=== PATIENT | female | born 1930 | race Caucasian/White ===

== ENCOUNTER 2016-10-17 21:05 | Inpatient (IN) | payer MEDICARE, BC ==
[~2016-10-17] VITALS: Ht 160 cm; Wt 91.6 kg
--- NOTE | ~2016-10-17 | OR ---
PATIENT'S NAME: Nicol MEZA [facility] AGE: 86 Y [address] ROOM: [address] [address] LOCATION: [facility] [place] ADMIT DATE: 10/17/2016 OR/Procedure Report DISCHARGE DATE: FAMILY PHYSICIAN: Homero Minor MD ATTENDING PHYSICIAN: JUDIT HAMILTON SURGEON: Jonathan Varela MD FITNESS SERVICES MANAGER: Tylor Serra PA-C DATE OF PROCEDURE: 10/21/2016 PREOPERATIVE DIAGNOSIS: Persistent partial small bowel obstruction. POSTOPERATIVE DIAGNOSES: 1. Persistent partial small bowel obstruction. 2. Meckel's diverticulum. PROCEDURES PERFORMED: 1. Exploratory laparoscopy with lysis of adhesions. 2. Meckel's diverticulectomy. ANESTHESIA: General endotracheal. ESTIMATED BLOOD LOSS: Minimal. REASON/INDICATION FOR PROCEDURE: The patient is an 86-year-old female, who was admitted several days ago with evidence of small bowel obstruction. Initially she seemed to improve and actually some of her CT contrast got into her right colon, but she never seemed to have completely recovered from this and we decided it was time to proceed with exploration. The risks and benefits were all discussed. FINDINGS: The patient had an adhesive band in the distal ilium that was definitely causing a high-grade partial obstruction. She had a Meckel's diverticulum directly adjacent to this. I am not sure if that had anything to do with the adhesive band, but it was adjacent to it. We did remove the Meckel's, but did not formally remove the rest of the small bowel. PROCEDURE IN DETAIL: The patient was taken to the operating suite and placed in the supine position. After general endotracheal anesthesia was obtained, the abdomen was prepped with ChloraPrep and sterilely draped. Marcaine was infiltrated into the incision sites. A 1 cm transverse incision was made in the upper midline. The fascia was elevated, and a Veress needle was used to obtain a pneumoperitoneum. A 5-mm trocar was then passed across the abdominal wall. Two further 5-mm trocars were placed under direct visualization. There were moderately dilated loops of small bowel noted, and down in the right lower quadrant, we found a loop of decompressed small bowel. We were able to PATIENT'S NAME: Nicol MEZA [facility] AGE: 86 Y [address] ROOM: [facility] [place], [place] [address] LOCATION: [facility] [place] ADMIT DATE: 10/17/2016 OR/Procedure Report DISCHARGE DATE: FAMILY PHYSICIAN: Homero Minor MD ATTENDING PHYSICIAN: JUDIT HAMILTON run this up to a transition zone. An adhesive band was causing the obstruction. This was somewhat difficult to see, but eventually we were able to maneuver the bowel away that I could slide the laparoscopic scissors in and cut this adhesive band. This definitely freed up the bowel and allowed passage of fluid through it. There were some more distal adhesions that did not seem to be causing any obstructive symptoms, but we did go ahead and freed the bowel up completely. As we were running the bowel, we noticed a small Meckel's diverticulum coming off the terminal ilium. There was no obvious inflammation. The Meckel's was right where the obstruction had occurred, though I am not convinced it had much to do with it. I did decide to go ahead and remove the Meckel's. An endoscopic MARIA ISABEL stapler was fired across the Meckel's diverticulum. Care was taken to not narrow the small bowel in this area. The Meckel's was then removed through the 12-mm trocar site. The staple line was intact. The trocars were all withdrawn. The pneumoperitoneum was evacuated. The fascia at the larger trocar site was closed with a Vicryl suture. The skin incisions were all closed with subcuticular Monocryl. Benzoin, Steri-Strips, and gauze dressings were applied. POSTPROCEDURE PLAN: The patient will be sent to recovery, and we will leave the NG tube in place. We will graduate return of bowel function. MD LYNN REEDER/india /[id number] d: 10/21/16 1903 t: 10/23/16 1542, OPERATIVE SUMMARY
--- NOTE | ~2016-10-17 | DS ---
PATIENT'S NAME: Nicol MEZA [facility] AGE: 86 Y [address] ROOM: [id number] [place], [place] [address] LOCATION: [facility] [place] ADMIT DATE: 10/17/2016 Discharge Summary DISCHARGE DATE: 10/24/2016 FAMILY PHYSICIAN: Homero Minor MD ATTENDING PHYSICIAN: Vin Alejandra PRIMARY/DISCHARGE DIAGNOSES: 1. Partial small bowel obstruction. 2. Acute kidney injury on chronic kidney disease. 3. Hypernatremia. 4. Essential hypertension. 5. Hypothyroidism. 6. Dyslipidemia. PROCEDURES PERFORMED: Principal procedures done for the patient includes: Laparoscopy enterolysis by Dr. Varela and also Coleman diverticulectomy by Dr. Varela. LABORATORY DATA: Laboratories on admission: WBC 8.0, was stable throughout the hospital stay. Prior to discharge was 6.4, H and H on admission were 13.2/40.6, prior to discharge, they were 10.3 with 32.7; and platelets 230,000, were stable throughout the hospital stay. On admission, creatinine was 2.6, prior to discharge was 1.3. Sodium on admission was 136, highest level obtained was 149, and prior to discharge was 145; bicarbonate was stable at 28 on admission, and prior to discharge was 25. Phosphorus on admission was 4.6, was stable throughout the hospital stay. Albumin was 2.5, was stable throughout the hospital stay at 2.2 upon discharge. Magnesium was 2.0 on admission, prior to discharge was 1.7. Radiology: KUB on admission reported as no free air identified on the supine study. Nasogastric tube in place with distal portion in the stomach, air containing mildly dilated small-bowel loops with colon decompression, appearance is consistent with clinically suspected small-bowel obstruction. The patient has serial KUBs done. Last KUB done which was done on hospital day 4, is reported as no free air identified in the abdomen, distended, air containing small bowel loops with increased extent of small bowel distention on this study when compared with prior imaging, and appearance is worrisome for small bowel obstruction. HOSPITAL COURSE: For history of present illness, please take a look at the H and P which was done by Dr. Alejandra. The patient was admitted to Med-Surgical unit, had a General Surgery consult, was managed for partial small bowel obstruction. For the first 4 days of the hospital stay, the patient was managed conservatively with an NG tube path for decompression. She was hydrated and pain was controlled with analgesics and had General Surgery PATIENT'S NAME: Nicol MEZA [facility] AGE: 86 Y [address] ROOM: [id number] [place], [place] [address] LOCATION: [facility] [place] ADMIT DATE: 10/17/2016 Discharge Summary DISCHARGE DATE: 10/24/2016 FAMILY PHYSICIAN: Homero Minor MD ATTENDING PHYSICIAN: Vin Alejandra following up closely with serial KUBs. For the first hospital stay, the patient clinically appeared to feel more comfortable, however, by the 4th day of the hospital stay, the repeat KUB showed worsening of the small bowel obstruction. So patient was subsequently taken into the OR by the General Surgery team for a laparoscopic enterolysis as well as during the procedure, a Meckel's diverticulectomy was also performed. The procedure was well tolerated by the patient. By the first day postoperatively, the patient felt extremely better, was started on a clear liquid diet, which she tolerated well. Started to ambulate on the floor in the hallway, and by the second day postoperatively, her diet was advanced to a soft mechanical diet which she tolerated very well. Pain had completely resolved following the procedure, and by the third day postoperatively, she was back to her baseline, ambulating in the hallway, and tolerating her regular diet well with no nausea or vomiting or abdominal pain. First day postoperatively, she did also develop hypernatremia which was corrected with D5 water, and by the day of discharge, her hypernatremia had resolved, and also her acute kidney injury with chronic kidney disease which she presented with had also resolved as well with hydration. On the day of discharge, she was in good spirit, vital signs were stable, and she was discharged to home. MEDICATIONS ON DISCHARGE: Includes: 1. Chlorthalidone 25 mg p.o. q. day. 2. Aspirin 81 mg p.o. q. day. 3. Synthroid 88 mcg p.o. q. day. 4. Timolol eye drops. 5. Xalatan eye drops. 6. Calcium (Os-Adniel) 1 tablet p.o. q. day. 7. Multivitamin 1 tablet p.o. q. day. 8. Fish oil 1 g p.o. q. day. 9. Pravachol 40 mg p.o. at bedtime. 10. Vitamin C 500 mg p.o. q. day. 11. Pepcid 20 mg q. day. MD DELLA YOUNG/india /[id number] d: 10/24/16 2330 t: 10/27/16 1352, DISCHARGE SUMMARY
--- NOTE | ~2016-10-17 | HP ---
PATIENT'S NAME: Nicol MEZA [facility] AGE: 86 Y [address] ROOM: [address] [address] LOCATION: G3 ADMIT DATE: 10/17/2016 History & Physical DISCHARGE DATE: FAMILY PHYSICIAN: PHYSICIAN, UNKNOWN ATTENDING PHYSICIAN: JUDIT HAMILTON DATE OF SERVICE: CHIEF COMPLAINT: Nausea and nonbloody vomiting associated with abdominal pain and bloating for the last five days. HISTORY OF PRESENT ILLNESS: This is an 86-year-old female with a prior surgical history of status post total abdominal hysterectomy and bilateral salpingo oophorectomy in the early and also status post appendectomy before 1999 and remote history of what the patient reported to be cystocele repair before 1999. This Friday around 2:30 p.m., she felt this vague abdominal pain and bloating in her right upper, right lower, and epigastric area associated with nausea and vomiting. That day, she vomited four times, nonbloody content. The symptoms persisted for the next three days and yesterday her symptoms still persisted and she felt even more bloated, not so much abdominal pain, more abdominal bloating and distention right now and the last time she vomited was yesterday morning and she still feels nauseous and last bowel movement was last Friday and it was loose, but nonbloody. The last time she ate a meal was yesterday morning. She has not passed any flatus for several days and last time she passed flatus, she could not even remember. Because of all these symptoms, the patient went to outside facility at [place]. Over there, KUB was performed and it showed abnormal bowel gas pattern which could reflect a small bowel obstruction and they recommend a CT for further evaluation. No free air. CT abdomen and pelvis without contrast was performed and that it showed small bowel obstruction pattern with level transition within the ilium in the right lower quadrant. Fluid adjacent to loops of small bowel. Noncontrast study limits the assessment for early ischemic changes. No late manifestations of bowel ischemia. Surgical evaluation is recommended. Because of these, the patient was sent over here for higher level of care. REVIEW OF SYSTEMS: As mentioned in the history of present illness. All other systems reviewed and negative except those mentioned in history of present illness. PAST MEDICAL HISTORY: 1. Hypertension. 2. Hypothyroidism. 3. Osteoarthritis. PATIENT'S NAME: Nicol MEZA [facility] AGE: 86 Y [address] ROOM: [address] [address] LOCATION: [facility] ADMIT DATE: 10/17/2016 History & Physical DISCHARGE DATE: FAMILY PHYSICIAN: PHYSICIAN, UNKNOWN ATTENDING PHYSICIAN: JUDIT HAMILTON 4. Hyperlipidemia. The patient denies any other past medical history. ALLERGIES: SULFA. THE PATIENT STATES THAT IT CAUSES HER TO HAVE ULCER AND BLISTER IN HER LIPS. SHE ALSO HAS ALLERGY TO TETANUS VACCINATION. HOME MEDICATIONS: Currently is being reconciled. SOCIAL HISTORY: The patient denies any alcohol or illegal drug or cigarette use in the past or in the present. FAMILY HISTORY: Father from brain aneurysm at advanced age. Mother from complication from stroke also at advanced age. PAST SURGICAL HISTORY: Status post total abdominal hysterectomy and bilateral salpingo-oophorectomy, status post cystocele prolapse repair, and status post appendectomy. PHYSICAL EXAMINATION: VITAL SIGNS: At the time of my dictation, temperature 98.3, heart rate 86, respirations 16, blood pressure 156/95, saturation 94% on room air. Pain 3/10 in the right lower quadrant. GENERAL APPEARANCE: Alert and oriented x3, in no acute distress. A very pleasant female. HEENT: Pupils are equally round and reactive to light. Extraocular muscles intact. Anicteric sclerae. Nasal turbinates are normal bilaterally. Moist oral mucosa. No oral thrush. NECK: No JVD. No cervical lymphadenopathy. RESPIRATORY: Clear. CARDIOVASCULAR: Regular rate and rhythm. Normal S1, S2. No murmur, no rubs, no gallops. ABDOMEN: Soft, distended, no abdominal rigidity, no rebound tenderness, mild tenderness to palpation more in the right lower quadrant about 4/10 intensity. Bowel sounds present, no palpable mass. EXTREMITIES: No edema in upper or lower extremity. SKIN: No ulcer, no rash, no cyanosis. MUSCULOSKELETAL: No joint pain. No muscle pain. Range of motion intact. NEUROLOGIC: Grossly nonfocal. LABORATORY DATA: Laboratory data from the outside facility today; white blood cells 7.6, [facility] 86 Y [address] ROOM: [address] [address] LOCATION: [facility] ADMIT DATE: 10/17/2016 History & Physical DISCHARGE DATE: FAMILY PHYSICIAN: PHYSICIAN, UNKNOWN ATTENDING PHYSICIAN: JUDIT HAMILTON hemoglobin 14.8, hematocrit 45, MCV 92, platelets 260. Urinalysis negative for UTI. Sodium 137, potassium 4.6, chloride 97, anion gap 21.3. Carbon dioxide 24, glucose 120, BUN 54, creatinine 1.9, GFR 25, calcium 9.7, total protein 7.4, globulin 3.4, albumin 4.0, AST 36, ALT 28, alkaline phosphatase 99, total bilirubin 0.8. IMAGING STUDIES: CT scan abdomen and pelvis without contrast and KUB were performed at outside facility. Refer to the history of present illness for details. ASSESSMENT AND PLAN: 1. Small bowel obstruction. N.p.o. NG tube insertion for intermittent suctioning. IV fluids for hydration. Pain control with IV morphine p.r.n. I will get a General Surgery consult in the morning. The patient has not passed flatus for several days and still feels nauseous and abdomen is distended and the last bowel movement was last Friday and I will have General Surgery see the patient in the morning for further recommendation. Pain with IV morphine p.r.n. She can have ice chips. PO Peridex 3 times a day. I will get a KUB in the morning. Check labs in the morning including a lactic acid. 2. Hypertension. Home medications are being reconciled. She is n.p.o. If necessary, I will give her IV hydralazine p.r.n. and IV labetalol p.r.n., and if necessary IV Lopressor, but IV Lopressor is better for heart rate control and not so much for the blood pressure control. 3. Hypothyroidism. I will check a TSH in the morning and titrate the dose of levothyroxine if necessary. I will give her IV levothyroxine by cutting down the home dose p.o. by half. 4. Regarding her acute kidney injury or chronic kidney disease, I am not sure what is her baseline creatinine. I will give her IV fluids for hydration and get the medical records and labs from her primary care physician's office tomorrow to compare her baseline. Check a renal panel again in the morning. 5. Regarding her hyperlipidemia. Hold the pravastatin. She is n.p.o. and will be having NG tube for now. 6. Deep venous thrombosis prophylaxis. The patient will be on compression devices for now. Pending General Surgery evaluation in the morning. Time spent in care on the day of admission 35 minutes including chart review, interviewing and examining the patient, addressing all the questions and concerns the patient had, and going over the plan of care with the patient and the patient's family members and the nurses. JUDIT HAMILTON MD PATIENT'S NAME: Nicol MEZA [facility] AGE: 86 Y [address] ROOM: [address] [address] LOCATION: [facility] ADMIT DATE: 10/17/2016 History & Physical DISCHARGE DATE: FAMILY PHYSICIAN: PHYSICIAN, UNKNOWN ATTENDING PHYSICIAN: JUDIT HAMILTON CC/india /[id number] D: [id number] T: [id number] HISTORY & PHYSICAL
--- NOTE | ~2016-10-17 | CON ---
PATIENT'S NAME: Nicol HARRIS [facility] AGE: 86 Y [address] ROOM: [address] [address] LOCATION: G3N ADMIT DATE: 10/17/2016 Consultation DISCHARGE DATE: FAMILY PHYSICIAN: Homero Minor MD ATTENDING PHYSICIAN: JUDIT HAMILTON DATE OF CONSULTATION: 10/18/2016 REFERRING PHYSICIAN: Fabienne Varela MD REASON FOR CONSULTATION: Small bowel obstruction. HISTORY OF PRESENT ILLNESS: Ms. Harris is an 86-year-old female, who transferred to [facility] yesterday from [place], [place] after a CT scan showed small bowel obstruction. The patient states that she was in her usual state of health up until October 13, when she had some diarrhea. She states that this will occasionally happen after certain foods that she eats and so she did not think too much of it. She states that she did not feel ill at that time. The following morning, she still felt fine, but that evening, she developed terrible pains in her stomach. On October 15, the patient had emesis. Later that day, she thought she was feeling better, but then on October 16, the patient continued with emesis along with pain in the lower abdomen. She states that she was very sick at that point in time and subsequently presented for evaluation yesterday afternoon in [place]. The patient denies having anything like this before. She has never been in the hospital with bowel obstruction. Last evening, an NG tube was placed to suction. She states that made a big difference in how she feels. She denies any pain today. She is not passing gas yet. She has not had a bowel movement since Friday when she was having the diarrhea. The patient's evaluation in [place] included an x-ray that showed some dilated small bowel loops measuring up to 4.2 cm in diameter. She also had air-fluid levels on the upright exam. This was followed up with a CT scan, which showed dilated small bowel loops measuring up to 3.6 cm in diameter. There were air- fluid levels present within the small bowel loops. Transition appeared to be in the right lower quadrant within the ileum. There was fluid surrounding dilated small bowel loops. IV contrast have not been given, so the study was limited. No twisting in the mesentery was seen. The patient did transfer and was admitted under the care of the hospitalist. An NG tube was placed to intermittent suction. Dr. Varela was consulted this morning for surgical evaluation. ALLERGIES: SULFA. PATIENT'S NAME: Nicol HARRIS [facility] AGE: 86 Y [address] ROOM: [place] [address] LOCATION: [facility] ADMIT DATE: 10/17/2016 Consultation DISCHARGE DATE: FAMILY PHYSICIAN: Homero Minor MD ATTENDING PHYSICIAN: JUDIT HAMILTON MEDICATIONS: Include, 1. Aspirin 81 mg p.o. b.i.d. 2. Os-Daniel 1 tablet p.o. daily. 3. Hygroton 25 mg p.o. daily. 4. Xalatan 1 drop ophthalmic daily. 5. Levothyroxine 88 mcg p.o. daily. 6. Cozaar 50 mg p.o. daily. 7. Multivitamin 1 tablet p.o. daily. 8. Fish oil 1000 mg p.o. daily. 9. Pravachol 40 mg p.o. at bedtime. 10. Timoptic 1 drop ophthalmic b.i.d. 11. Ascorbic acid 500 mg p.o. daily. 12. PreserVision 2 tablets p.o. b.i.d. ILLNESSES: Include glaucoma and macular degeneration. The patient states probably that she has not lost any vision up unto this point. She has hypertension, hypercholesterolemia, and hypothyroid. The patient denies any history of heart disease, DVT, any pulmonary problems, or cancer. OPERATIONS: Include, 1. Excision of her right fallopian tube with appendectomy due to infection in the period. 2. Vaginal hysterectomy. 3. Breast biopsy. 4. History of broken arm. 5. Colonoscopy, 4 years ago with a few polyps removed. SOCIAL HISTORY: The patient is . She lives in her own home in [place]. She lives alone. She is a nonsmoker and does not consume alcohol. FAMILY HISTORY: Father from a brain aneurysm. Mother had a stroke. She had 2 brothers and 1 sister, each of which also had strokes. REVIEW OF SYSTEMS: The patient states that up until this started on October 13, she had been getting along well. Her appetite had been good. She had not lost any weight. She denies any recent coughs or colds. She had the flu vaccine. She did not have influenza. No recent pneumonias. No shortness of breath. No chest pain. No history of any heart problems. Her bowels have been working PATIENT'S NAME: Nicol HARRIS [facility] AGE: 86 Y [address] ROOM: [place] [address] LOCATION: [facility] ADMIT DATE: 10/17/2016 Consultation DISCHARGE DATE: FAMILY PHYSICIAN: Homero Minor MD ATTENDING PHYSICIAN: JUDIT HAMILTON normally with no blood in her stool. No pain, frequency, or urgency of urination. PHYSICAL EXAMINATION: VITAL SIGNS: Temperature 97.9, blood pressure 137/58, pulse 70, respirations 13. GENERAL: An 86-year-old female, who is alert and oriented, pleasant and cooperative, in good spirits. She is a good historian. EYES, EARS, NOSE, AND THROAT: Grossly normal, although she does have an NG tube in place. LUNGS: Clear to auscultation anteriorly. No wheezes, rhonchi, or rales noted. HEART: Regular rate and rhythm. ABDOMEN: Has active bowel sounds. Abdomen is soft and nontender to palpation. She has a scar noted in the lower midline. EXTREMITIES: The patient appears to move extremities equally. LABORATORY WORK: White blood cell count 8.0, hemoglobin 13.2, hematocrit 40.6, platelets 230. Sodium 136, potassium 4.1, chloride 98, CO2 of 28, BUN 60, creatinine is up to 2.6 compared to 1.9 yesterday. Glucose 110, Protime 10.9, INR 1.0. Liver function tests were within normal limits. Magnesium was 2.0. Protime 10.9, INR 1.0. CT scan per HPI. ASSESSMENT: An 86-year-old female with, 1. Small bowel obstruction, most likely related to adhesions. 2. Renal insufficiency with creatinine of 1.9 up to 2.6 today. 3. Hypertension. 4. Hypercholesterolemia. 5. Glaucoma. 6. Macular degeneration. 7. Hypothyroid. PLAN: I discussed the findings on CT scan with the patient and her [id number], who is at bedside. I discussed conservative treatment with NG tube for decompression along with bowel rest. Alternatively, I discussed proceeding with an operation to release the bowel obstruction. Given the fact that the patient is feeling better today, I feel that it is reasonable to continue with NG decompression, and if she does not continue to improve or if she worsens over the next 24 to 48 hours, then we can reconsider doing a laparoscopy, possible laparotomy. The patient was in understanding and agreement with the conservative treatment at this time. I have discussed this patient with Dr. Varela. He has reviewed over some of her imaging studies. He will be PATIENT'S NAME: Nicol HARRIS [facility] AGE: 86 Y [address] ROOM: [place] [address] LOCATION: [facility] ADMIT DATE: 10/17/2016 Consultation DISCHARGE DATE: FAMILY PHYSICIAN: Homero Minor MD ATTENDING PHYSICIAN: JUDIT HAMILTON evaluating the patient momentarily and will be involved in the final assessment and plan. Again, Dr. Varela is available for supervision. SCOTT CERVANTES PA-C FOR FABIENNE VARELA MD KDK/modl /[id number] d: 10/18/16 1248 t: 10/28/16 1032, CONSULTATION REPORT
[2016-10-18] MEDS ORDERED: ASPIRIN LO-DOSE81 MG PO (00:09)
[2016-10-18] MEDS ORDERED: OSCAL500 MG PO (00:10)
[2016-10-18] MEDS ORDERED: XALATAN2.5 ML OPHTH (00:11)
[2016-10-18] MEDS ORDERED: HYGROTON25 MG PO (00:11)
[2016-10-18] MEDS ORDERED: THERAGRAN-M1 TAB PO (00:12)
[2016-10-18] MEDS ORDERED: LEVOTHROID (SY88 MCG PO (00:12)
[2016-10-18] MEDS ORDERED: COZAAR50 MG PO (00:12)
[2016-10-18] MEDS ORDERED: FISH OIL 1,001000 MG PO (00:13)
[2016-10-18] MEDS ORDERED: PRAVACHOL40 MG PO (00:13)
[2016-10-18] MEDS ORDERED: TIMOPTIC XE 0.5%5 ML OPHTH (00:14)
[2016-10-18] MEDS ORDERED: ASCORBIC ACID500 MG PO (00:14)
[2016-10-18] MEDS ORDERED: PRESERVISION A1 EAC1 PO (00:14)
--- NOTE | 2016-10-18 04:54 | NUR ---
PATIENT FROM [facility] BY PLATING ENGINEER AFTER 5 DAYS OF NAUSEA/VOMITING, POOR PO INTAKE AND ABDOMINAL PAIN AND ABDOMINAL CT SHOWED A SBO. DR HAMILTON WILL BE FOLLOWING PATIENT AND FAMILY IS IN ROOM.
--- NOTE | 2016-10-18 04:56 | NUR ---
SBO, NGT PLACED WITH IMMEDIATE 1500ML OF BROWNISH FECAL SMELLING FLUID, NGT TO LIS AND PATIENT REPORTED RELIEF OF ABDOMINAL PRESSURE. LFA PIV WAS STARTED AT [facility] AND IS NOW RUNNING D5 NS @50ML/HR. VS WNL, RA, UP WITH SBA/GAIT BELT. PATIENT IS NPO AND MAY HAVE ICE CHIPS PRN. NO N/V SINCE ADMITTED AND ZOFRAN WAS GIVEN LAST @2007 AT THE [facility] [facility] BEFORE TRANSPORT. FAMILY PRESENT IN ROOM OVERNIGHT FOR SUPPORT.
[2016-10-18 05:45] LABS: HEMATOCRIT 40.6 % (30.0-46.0); HEMOGLOBIN 13.2 g/dL (10.0-15.0); MCH 29.8 pg (27.0-34.0); MCHC 32.5 gm/dL (32.0-36.5); MCV 91.6 fl (83.0-98.0); RBC 4.43 M/uL (3.00-5.00); RDW-CV 12.3 % (11.9-14.6)
[2016-10-18 05:55] LABS: PROTIME 10.9 SECONDS (9.6-11.1)
[2016-10-18 06:12] LABS: ANION GAP 14.1 (10.0-19.0); CALCIUM 8.3 mg/dL (8.5-10.5); CREATININE 2.6 mg/dL (0.5-1.1); PHOSPHORUS 4.8 mg/dL (2.5-4.9); POTASSIUM 4.1 mMol/L (3.7-5.1); TOTAL BILIRUBIN 0.6 mg/dL (0.0-1.5); TOTAL PROTEIN 6.3 g/dL (6.0-8.4)
--- NOTE | 2016-10-18 06:43 | NUR ---
[id number] Supervised [facility] [employer].
--- NOTE | 2016-10-18 11:00 | NUR ---
SPOKE TO PATIENT REGARDING CM AND OUR ROLE. PATIENT LIVES IN OWN HOME ALONE. SHE DOES NOT ANTICIPATE ANY DISCHARGE NEEDS AT THIS TIME. CM WILL CONT TO FOLLOW NEEDED.
[2016-10-18 15:42] LABS: CALCIUM 7.9 mg/dL (8.5-10.5); CREATININE 2.3 mg/dL (0.5-1.1); PHOSPHORUS 4.5 mg/dL (2.5-4.9)
[2016-10-18 15:47] LABS: ANION GAP 14.9 (10.0-19.0); MAGNESIUM 1.9 mg/dL (1.3-2.6); POTASSIUM 3.9 mMol/L (3.7-5.1)
--- NOTE | 2016-10-18 16:14 | NUR ---
Significant Event: Pt is a/o. Has amb to BR, walked in driver x 2, sat in chair. Rates abd pain @ 2 . States she feels much better today. Has NG to LIS. Had 825 ml from NG this shift. Reports mild sore throat pain from NG tube. BS present. Follow up:
--- NOTE | 2016-10-19 04:06 | NUR ---
Patient alert and oriented x3, very pleasant and cooperative, NG tube in place had 550 out this shift changed the canister tolerating well, bowel sounds hypoactive in the lower quadrants, NPO taking ice chips, throat is slightly sore, tranfers one assit well with gaitbelt, has rested well tonight
[2016-10-19 06:01] LABS: BASOPHIL % 0.5 %; EOSINOPHIL # 0.2 K/uL (0.0-0.5); EOSINOPHIL % 2.4 %; HEMATOCRIT 37.6 % (30.0-46.0); HEMOGLOBIN 12.3 g/dL (10.0-15.0); IMMATURE GRANULOCYTE % 0.3 %; LYMPHOCYTE % 14.1 %; MCH 30.3 pg (27.0-34.0); MCHC 32.7 gm/dL (32.0-36.5); MCV 92.6 fl (83.0-98.0); MONOCYTE # 1.1 K/uL (0.0-1.0); MONOCYTE % 14.5 %; MPV 10.8 fl (9.4-12.4); NEUTROPHIL % 68.2 %; NRBC % 0 /100WBC (0-0.00); PLATELET COUNT 199 K/uL (150-450); RBC 4.06 M/uL (3.00-5.00); RDW-CV 12.4 % (11.9-14.6); WBC 7.4 K/uL (4.0-11.0)
[2016-10-19 06:15] LABS: ALBUMIN 2.5 gm/dL (3.5-5.0); ANION GAP 11.7 (10.0-19.0); CALCIUM 7.7 mg/dL (8.5-10.5); MAGNESIUM 1.9 mg/dL (1.3-2.6); PHOSPHORUS 3.6 mg/dL (2.5-4.9); POTASSIUM 3.7 mMol/L (3.7-5.1)
--- NOTE | 2016-10-19 13:44 | NUR ---
Significant Event:AOx3. NG tube intact on intermittent suction. 300ml output of greenish brown drainage. Ice chips at bedside. Hypoactive bowel sounds. GFR is 24. Fluids running at 80ml/hr NS. Up with SBA. Has walked halls today. Follow up:
--- NOTE | 2016-10-19 17:00 | NUR ---
Significant Event: Pt transfered from 3N at 1600. a/o x3. 1 assist. Has an NG to right nare, suction to low intermittent, small amt of brown drainage at this time. NPO with ice chips. Follow up:
--- NOTE | 2016-10-20 05:24 | NUR ---
ALERT AND ORIENTATED X4. AMBULATES WITH STAND BY ASSIST. IV WAS RESTARTED THIS SHIFT FLUIDS RUNNING. ICE CHIPS GIVEN NO REPORT OF NAUSEA OR VOMITING. NG TUBE TO R NARE ON LOW INTERMITTENT SUCTION WITH 350 ML OUT. STATED SHE FEELS LIKE SHE MAY HAVE A BM BUT NO RESULTS. HYPOACTIVE BOWELS SOUNDS. VS WNL. ON RA. RESTED WELL THIS SHIFT NO COMPLAINTS OF PAIN OR DISCOMFORT. COORPERATIVE WITH CARES
[2016-10-20 05:30] LABS: ALBUMIN 2.5 gm/dL (3.5-5.0); CALCIUM 7.9 mg/dL (8.5-10.5); CREATININE 1.4 mg/dL (0.5-1.1); PHOSPHORUS 2.6 mg/dL (2.5-4.9); POTASSIUM 3.4 mMol/L (3.7-5.1)
[2016-10-20 05:32] LABS: ANION GAP 12.4 (10.0-19.0)
--- NOTE | 2016-10-20 15:24 | NUR ---
Significant Event: Pt denies pain. Ambulated in driver x 4. Up in recliner most of shift. NG to right nare, was on LIS but was clamped per order at 1300, to check residuals q 6 hrs and restart suction if nauseated. Still has not passed flatus. Good bowel sounds. Bp elevated, started on IV hydralizine TID. O2 sat 87-90% on room air, encouraged IS and coughing, O2 ordered if less than 90%. Lung sounds diminished in lower bases. Follow up:
[2016-10-21 05:13] LABS: ANION GAP 12.3 (10.0-19.0); CALCIUM 8.2 mg/dL (8.5-10.5); CREATININE 1.2 mg/dL (0.5-1.1); POTASSIUM 3.3 mMol/L (3.7-5.1)
--- NOTE | 2016-10-21 17:58 | NUR ---
Significant event: Patient is alert and oriented x3. VSS on room air. IV to right hand. Had midline placed to left upper arm this afternoon. Went to surgery this morning and had a laparoscopic lysis of adhesions and removal of meckel's diverticulum. patient Returned to floor at 1315 and has had no complaints of pain. NG in place in right nare, is on low intermittent suction. Is NPO for now. 3 lap incisions to abdomen covered with gauze and tegaderm, no drainage noted. Cooperative with cares.
--- NOTE | 2016-10-22 04:48 | NUR ---
Significant Event: Patient alert and oriented X4. Up with one person assist and gait belt. Walked in room several times and in driver X1 out to nurses station. Tolerated well. Having some ice chips. NG to R) nare had 100ml out. Voiding well. IVF switched over to midline on L) arm. Good blood return. Denies any pain. Passing some gas. Received some IV K+ last night. Follow up: Monitor flatus
[2016-10-22 05:21] LABS: BASOPHIL % 0.1 %; EOSINOPHIL % 0.3 %; HEMATOCRIT 37.8 % (30.0-46.0); HEMOGLOBIN 11.9 g/dL (10.0-15.0); IMMATURE GRANULOCYTE % 0.3 %; LYMPHOCYTE % 13.1 %; MCHC 31.5 gm/dL (32.0-36.5); MCV 95.2 fl (83.0-98.0); MONOCYTE # 0.7 K/uL (0.0-1.0); MONOCYTE % 9.9 %; NEUTROPHIL # (ANC) 5.7 K/uL (1.8-7.8); NEUTROPHIL % 76.3 %; NRBC % 0 /100WBC (0-0.00); PLATELET COUNT 180 K/uL (150-450); RBC 3.97 M/uL (3.00-5.00); RDW-CV 12.6 % (11.9-14.6); WBC 7.5 K/uL (4.0-11.0)
[2016-10-22 05:34] LABS: CALCIUM 8.2 mg/dL (8.5-10.5); CREATININE 1.3 mg/dL (0.5-1.1)
[2016-10-22 05:37] LABS: ANION GAP 13.2 (10.0-19.0); POTASSIUM 4.2 mMol/L (3.7-5.1)
--- NOTE | 2016-10-22 12:16 | NUR ---
A-SCREENED D/T LOS S/P LAPAROSCOPIC LYSIS OF ADHESIONS AND REMOVAL OF MECKELS DIVERTICULUM. (+)BM TODAY. (+)BS. TOLERATING LIQUIDS WITHOUT DIFFICULTY HT: 63 IN. 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 EST NUTR NEEDS: [id number] KCALS (15-20 KCALS/KG) 78-104 GM PROTEIN (1.5-2.0 GM/KG IBW) 1 ML FLUID/KCAL D-AT NUTRITION RISK W/INADEQUATE ORAL INTAKE R/T ALTERED GI FXN AEB NPO STATUS, GI SURGERY. I-START ENSURE CLEAR TID WHEN CLEAR LIQUIDS ORDERED M/E-GOAL: PT WILL TOLERATE LIQUIDS WITHOUT DIFFICULTY 1)F/U DIET RX, SUPPLEMENT, GI, AND POC IN 3-4 DAYS 2)ASSIST NEEDED
--- NOTE | 2016-10-22 18:40 | NUR ---
Significant event: Patient is alert and oriented. VSS, is a little hypertensive. NG was removed this morning.IV to right hand-saline locked and midline to left upper arm with fluids running. Patient had 2 BM's today, Voiding well. Tolerating clear liquids with no nausea, vomiting, or abdominal pain. 3 stab incisions to abdomen, dressings are C/D/I. Ambulates in hallway with stand by assist. Cooperative with cares.
--- NOTE | 2016-10-23 04:31 | NUR ---
SIGNIFICANT EVENT: VSS on RA. Patient alert & oriented. Ambulates 1PA. Midline to L) upper arm infusing D5 at 50 mL/hr. Clear liquids, tolerated well. Midnight Heparin given late - pharmacy contacted, today's doses re-timed to ensure q8h interval. 3 lap sites to abd - dressings CDI. Denies pain. Pleasant and cooperative with cares.
[2016-10-23 05:14] LABS: HEMATOCRIT 32.7 % (30.0-46.0); HEMOGLOBIN 10.3 g/dL (10.0-15.0); MCHC 31.5 gm/dL (32.0-36.5); MCV 95.3 fl (83.0-98.0); MPV 11.2 fl (9.4-12.4); PLATELET COUNT 152 K/uL (150-450); RBC 3.43 M/uL (3.00-5.00); RDW-CV 12.9 % (11.9-14.6); WBC 6.4 K/uL (4.0-11.0)
[2016-10-23 05:27] LABS: ALBUMIN 2.1 gm/dL (3.5-5.0); ANION GAP 11.6 (10.0-19.0); CALCIUM 7.8 mg/dL (8.5-10.5); CREATININE 1.2 mg/dL (0.5-1.1); PHOSPHORUS 2.4 mg/dL (2.5-4.9); POTASSIUM 3.6 mMol/L (3.7-5.1)
[2016-10-23 05:43] LABS: ABSOLUTE NEUTROPHIL CT (ANC) 4.4 K/uL (1.8-7.8); BANDED NEUTROPHIL # 0.9 K/uL (0.0-0.1); BANDED NEUTROPHILS % 14 %; LYMPHOCYTE # 1.4 K/uL (0.8-4.0); LYMPHOCYTE % 22 %; MONOCYTE # 0.3 K/uL (0.0-1.0); SEGMENTED NEUTROPHIL # 3.5 K/uL (1.8-7.8); SEGMENTED NEUTROPHIL % 54 %
--- NOTE | 2016-10-23 18:30 | NUR ---
Significant Event: Patient had a good day today. Tolerated full liquids for breakfast and lunch and then upgraded to soft diet for supper. Has done well. Denies pain/nausea. Patient did get 2 gm of magnesium IV and potassium 40 meq PO--both one time orders for low serum levels. Ambulated with her daughter in the driver and did well. Plan is for her to go home in the morning. Follow up: Continue to monitor.
--- NOTE | 2016-10-24 05:10 | NUR ---
Significant Event: Patient alert and oriented X4. UP with stand by assist. Walked in halls X2. Having stools and passing gas. Voiding well. Vitals stable and on room air. Saline lock to R) forearm and midline to L) upper arm. Denies pain/nausea. Plans to go home today. Follow up: Monitor Bowel sounds
[2016-10-24 06:09] LABS: ALBUMIN 2.2 gm/dL (3.5-5.0); ANION GAP 11.2 (10.0-19.0); CREATININE 1.3 mg/dL (0.5-1.1); MAGNESIUM 1.7 mg/dL (1.3-2.6); PHOSPHORUS 2.5 mg/dL (2.5-4.9); POTASSIUM 4.2 mMol/L (3.7-5.1)
[2016-10-24] MEDS ORDERED: PEPCID20 MG PO (12:13)
[2016-10-24] MEDS ORDERED: TYLENOL325 MG PO (12:17)
--- NOTE | 2016-10-24 13:06 | NUR ---
D:Orders received for patient to be dismissed. I:Dismissal instructions were prepared and reviewed with the patient and her family by the virtual nurse using the computer technology. The following information was reviewed with the patient: diet and activity recommendations for home, abnormal s/s to monitor for and to report to MD if they occur, dressing and incisional care for home, home medications/new prescription medications, and plans for follow up appointment with Dr. Minor in [address] Varela as needed. Jordon teaching information given to and reviewed with patient on the following topics: Discharge Instructions for Release of Small Bowel Obstruction, Famotidine, Tylenol, and Preventing Deep Vein Thrombosis. I clarified the activity recommendations with Pranav Serra PA-C and she said activity as tolerated - not to follow the 10 pound weight limit for 6 weeks as the [employer] instructions say. R:The patient verbalized understanding of above teaching and denied further questions at the time. P:The patient's primary nurse, Amanda MOREIRA, was informed that the teaching had been completed. The patient will be dismissed later this afternoon.
--- NOTE | 2016-10-24 13:30 | NUR ---
Significant Event: Patient up in chair and doing well. Tolerated breakfast and lunch well. Denies pain. Doctors said that patient was ok to be dismissed. Dismissal orders processed and reviewed with patient by Virtual Nurse. IV's discontinued by primary nurse. Daughter here to take patient home. Patient taken in a wheelchair by SCHEDULING CLERK to the front doors for dismissal where daughter was waiting to drive patient home.
== END 2016-10-24 13:30 | disposition disaster alternative care site (69) | DRG 336 ==
LOC: G3N 21:05 → GMSU 23:39 → G3N 23:39 → GMSU 10-19 16:15
PROVIDERS: Internal Medicine; Physician Assistant; Surgery; ADMIT Internal Medicine
PROC: 0DN84ZZ Release Small Intestine, Percutaneous Endoscopic Approach (ICD-10-PCS; principal; 2016-10-21)
PROC: 0DBB4ZZ Excision of Ileum, Percutaneous Endoscopic Approach (ICD-10-PCS; 2016-10-21)
DX: K56.5 Intestinal adhesions [bands] with obstruction (postinfection) (principal); N17.9 Acute kidney failure, unspecified; E87.0 Hyperosmolality and hypernatremia; N18.9 Chronic kidney disease, unspecified; I12.9 Hypertensive chronic kidney disease with stage 1 through stage 4 chronic kidney disease, or unspecified chronic kidney disease; E03.9 Hypothyroidism, unspecified; E78.5 Hyperlipidemia, unspecified; Q43.0 Meckel's diverticulum (displaced) (hypertrophic); H40.9 Unspecified glaucoma; M19.90 Unspecified osteoarthritis, unspecified site
CPT/HCPCS: C1751; C9113; J0360; J0694; J1100; J1644; J2001; J2405; J3475; J3480; J7040; J7042; J7060; J7120